=== PATIENT | female | born 1975 | race Caucasian/White ===

== ENCOUNTER → 2020-10-29 | Outpatient (CLI) | payer OTHER | END | disposition home or self-care (01) | LOC: SONOGRAMA 09:00 | PROVIDERS: ATTEND General Practice | DX: R17 Unspecified jaundice (principal); R53.81 Other malaise; R82.998 Other abnormal findings in urine; K80.80 Other cholelithiasis without obstruction ==

== ENCOUNTER 2020-11-23 07:50 | Outpatient (CLI) | payer OTHER | END 2020-11-23 08:27 | disposition home or self-care (01) | LOC: SONOGRAMA 07:50 | PROVIDERS: ATTEND Obstetrics & Gynecology Maternal & Fetal Medicine | DX: N84.0 Polyp of corpus uteri (principal) ==